=== PATIENT | female | born 1990 | race Caucasian/White ===

== ENCOUNTER 2017-11-02 21:50 | Emergency (ER) | payer OTHER ==
[2017-11-02 21:54] VITALS: O2SAT 100
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
[2017-11-03 01:11] VITALS: BP 105/61; PULSE 65; RESP 18; TEMP 98.2
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
== END 2017-11-03 01:30 | disposition home or self-care (01) ==
LOC: H.ER 21:50
DX: S09.90XA Unspecified injury of head, initial encounter (principal); S20.219A Contusion of unspecified front wall of thorax, initial encounter; M25.551 Pain in right hip; Y04.0XXA Assault by unarmed brawl or fight, initial encounter; Y92.89 Other specified places as the place of occurrence of the external cause; F17.200 Nicotine dependence, unspecified, uncomplicated